=== PATIENT | male | born 1945 | race Caucasian/White ===

== ENCOUNTER 2016-12-31 10:38 | Outpatient (CLI) | payer MEDICARE, OTHER ==
--- NOTE | 2016-12-31 13:49 | XRAY Report ---
TWO-VIEW CHEST: 12/31/2016 CLINICAL INDICATION: Bronchitis. COMPARISON: 10/10/2015 FINDINGS: Frontal and lateral views of the chest demonstrate a normal cardiac silhouette. The lungs are hyperinflated, but clear. No effusion or pneumothorax is present. IMPRESSION: HYPERINFLATION, BUT NO EVIDENCE OF ACUTE CARDIOPULMONARY DISEASE. JOB #: [id number] EXT JOB #:[id number]
== END 2016-12-31 10:39 | disposition home or self-care (01) ==
LOC: DI 10:38
PROVIDERS: ATTEND Family Medicine
DX: J20.8 Acute bronchitis due to other specified organisms (principal)
CPT/HCPCS: 71020

== ENCOUNTER 2017-01-27 13:05 | Outpatient (CLI) | payer MEDICARE, OTHER ==
[2017-01-27 20:06] LABS: CHOL/HDL RATIO 4.7 (<5.0); CHOLESTEROL 222 mg/dL; HDL CHOLESTEROL 47 mg/dL; LDL/HDL RATIO 3.4 (<3.6); TRIGLYCERIDES 81 mg/dL; VLDL CHOLESTEROL 16 mg/dL
== END 2017-01-27 13:06 | disposition home or self-care (01) ==
LOC: LAB.F 13:05
PROVIDERS: ATTEND Internal Medicine
DX: Z13.220 Encounter for screening for lipoid disorders (principal)
CPT/HCPCS: 36415; 80061

== ENCOUNTER 2017-08-01 10:54 | Outpatient (CLI) | payer MEDICARE, OTHER ==
[2017-08-01 18:21] LABS: CHOL/HDL RATIO 4.9 (<5.0); CHOLESTEROL 215 mg/dL; HDL CHOLESTEROL 44 mg/dL; LDL CHOLESTEROL,CALCULATED 153 mg/dL; LDL/HDL RATIO 3.5 (<3.6); VLDL CHOLESTEROL 18 mg/dL
== END 2017-08-01 10:55 | disposition home or self-care (01) ==
LOC: LAB.F 10:54
PROVIDERS: ATTEND Nurse Practitioner Family
DX: E78.5 Hyperlipidemia, unspecified (principal)
CPT/HCPCS: 36415; 80061

== ENCOUNTER 2017-08-19 09:46 | Emergency (ER) | payer MEDICARE, OTHER ==
[2017-08-19 11:12] LABS: BASOPHILS # (AUTO) 0.1 10^3/uL (0.0-0.1); BASOPHILS % (AUTO) 1.3 %; EOSINOPHILS # (AUTO) 0.3 10^3/uL (0.0-0.7); EOSINOPHILS % (AUTO) 5.9 %; LYMPHOCYTES # (AUTO) 1.2 10^3/uL (1.5-3.5); LYMPHOCYTES % (AUTO) 27.6 %; MEAN CORPUSCULAR HEMOGLOBIN 31.6 pg (27.0-31.0); MEAN CORPUSCULAR HGB CONC 34.4 g/dL (32.0-36.0); MEAN PLATELET VOLUME 8.5 fL (7.4-11.4); MONOCYTES # (AUTO) 0.5 10^3/uL (0.0-1.0); MONOCYTES % (AUTO) 11.9 %; NEUTROPHILS # (AUTO) 2.3 10^3/uL (1.5-6.6); NEUTROPHILS % (AUTO) 53.3 %; PLT - PLATELET COUNT 215 10^3/uL (130-450); RED BLOOD COUNT 4.44 10^6/uL (4.70-6.10); RED CELL DISTRIBUTION WIDTH 14.2 % (12.0-15.0); WHITE BLOOD COUNT 4.4 x10^3/uL (4.8-10.8)
[2017-08-19 11:27] LABS: ALBUMIN 4.4 g/dL (3.2-5.5); ALBUMIN/GLOBULIN RATIO 1.3 (1.0-2.2); BILIRUBIN,TOTAL 0.5 mg/dL (0.2-1.0); CALCIUM 9.8 mg/dL (8.5-10.3); CREATININE 0.8 mg/dL (0.6-1.2); TOTAL PROTEIN 7.9 g/dL (6.7-8.2)
--- NOTE | 2017-08-19 11:41 | ED Physician Documentation ---
History of Present Illness - Stated complaint Stated Complaint: SHARP PX LT ARM - Chief complaint Chief Complaint: General - History obtained from History obtained from: Patient, Family - History of Present Illness Timing: How many days ago (2) - Additonal information Additional information: 71-year-old male has recently started Lipitor at 80 mg per day and he is now developed some pain in his left distal triceps that was severe and lasted hours last night. He did not take his statin last night and today his symptoms are somewhat improved. He is concerned about statin myopathy. He has not had shortness of breath or diaphoresis associated with this. He has been in good physical condition usually walks 3 miles per day this is not changed. Review of Systems Constitutional: reports: Myalgias. denies: Fever, Chills Eyes: denies: Decreased vision Ears: denies: Ear pain Nose: denies: Rhinorrhea / runny nose, Congestion Throat: denies: Sore throat Cardiac: denies: Chest pain / pressure, Palpitations Respiratory: denies: Dyspnea, Cough GI: denies: Abdominal Pain, Nausea, Vomiting : denies: Dysuria, Frequency Skin: denies: Rash Musculoskeletal: reports: Extremity pain. denies: Neck pain, Back pain Neurologic: denies: Generalized weakness, Focal weakness, Numbness PD PAST MEDICAL HISTORY - Past Medical History Past Medical History: Yes Cardiovascular: High cholesterol, Other Respiratory: Asthma, Other Neuro: None Endocrine/Autoimmune: None GI: Chronic diarrhea, Hemorrhoids : Benign prostate hypertrophy, Kidney stones, Other HEENT: Chronic vision loss, Chronic sinusitis Psych: Depression, Anxiety Musculoskeletal: Other Derm: Eczema, Other - Past Surgical History Past Surgical History: Yes General: Colonoscopy Ortho: Shoulder arthroplasty Derm: Debridement, Other - Present Medications Home Medications: Ambulatory Orders Medication Instructions Recorded Confirmed Albuterol 2.5 mg INH Q4H PRN 02/15/14 03/04/17 Cholecalciferol (Vitamin D3) 5,000 unit PO DAILY 02/15/14 03/04/17 [Vitamin D] Gluc [place]/Chondro [place] A/Vit C/Mn 1 each PO DAILY 02/15/14 03/04/17 [Glucosamine Chondroitin Tab] Multivitamin [Multivitamins] 1 each PO DAILY 02/15/14 03/04/17 Albuterol Sulfate [Proair Hfa] 90 mcg INH DAILY 05/31/14 03/04/17 Azelastine/Fluticasone [Dymista 50 mcg INH DAILY 05/31/14 03/04/17 Nasal [place]] Bacillus Coagulan/Calcium Carb 1 tab PO DAILYWM 05/31/14 03/04/17 [Digestive Advantage Chew Tab] Jethro Seed/Ala/Linoleic/Oleic [Jethro 1 tsp PO DAILY 05/31/14 03/04/17 Oil 1,000 mg Softgel] Cholecalciferol (Vitamin D3) 1 tab PO DAILY 05/31/14 03/04/17 [D3-50] Fish Oil/Borage/Flax/Om3,6,9#1 400 mg PO DAILY 05/31/14 03/04/17 [Triple [place] Complex 3-6-9] Cyanocobalamin/Folic Acid [Vitamin 5,000 mg PO DAILY 02/28/15 03/04/17 W26-Zcgyl Acid Tablet] Beclomethasone Dipropionate [Qvar] 1 puffs IH DAILY 03/05/16 03/04/17 Budesonide/Formoterol 80/4.5 2 puffs INH BID 03/05/16 03/04/17 [Symbicort] - Allergies Allergies/Adverse Reactions: Allergies Allergy/AdvReac Type Severity Reaction Status Date / Time formaldehyde Allergy Severe Rash Verified 08/19/17 10:01 ibuprofen Allergy Intermediate Dizziness Verified 08/19/17 10:01 latex Allergy Intermediate Rash Verified 08/19/17 10:01 TAPE Allergy Intermediate Rash Uncoded 08/19/17 10:01 - Social History Does the pt smoke?: No Smoking Status: Never smoker Does the pt have substance abuse?: No - POLST Patient has POLST: No PD ED PE NORMAL - Vitals Vital signs reviewed: Yes (hypertensive mild ) - General General: Alert and oriented X 3, No acute distress, Well developed/nourished - HEENT HEENT: Atraumatic, PERRL, EOMI - Neck Neck: Supple, no meningeal sign, No bony TTP - Cardiac Cardiac: RRR, No murmur - Respiratory Respiratory: No respiratory distress, Clear bilaterally - Abdomen Abdomen: Soft, Non tender - Back Back: No CVA TTP, No spinal TTP - Derm Derm: Normal color, Warm and dry, No rash - Extremities Extremities: No deformity, No edema - Neuro Neuro: No motor deficit, No sensory deficit Eye Opening: Spontaneous Motor: Obeys Commands Verbal: Oriented GCS Score: 15 - Psych Psych: Normal mood, Normal affect Results - Vitals Vitals: Vital Signs - 24 hr 08/19/17 08/19/17 08/19/17 09:54 11:12 12:24 Temperature 36.2 C L Heart Rate 49 L 58 L 48 L Respiratory 16 15 14 Rate Blood Pressure 134/89 H 128/87 H 139/83 H O2 Saturation 100 99 100 08/19/17 13:05 Temperature Heart Rate 53 L Respiratory 16 Rate Blood Pressure 138/85 H O2 Saturation 100 Oxygen O2 Source Room air - EKG (time done) 0959 Rate: Rate (enter#) (47) Rhythm: Sinus bradycardia Other comments: Other comments (early transition and borderline interventricluar conduction delay) Compare to prior EKG: Old EKG unavailable Computer interpretation: Disagree with computer (I am not able to make out lateral ST depression ) - Labs Labs: Laboratory Tests 08/19/17 08/19/17 08/19/17 10:20 10:20 10:20 WBC 4.4 L RBC 4.44 L Hgb 14.0 Hct 40.9 L MCV 92.0 MCH 31.6 H MCHC 34.4 RDW 14.2 Plt Count 215 MPV 8.5 Neut # 2.3 Lymph # 1.2 L [place] # 0.5 Eos # 0.3 Baso # 0.1 Absolute Nucleated RBC 0.00 Nucleated RBC % 0.0 Sodium 137 Potassium 3.8 Chloride 100 L Carbon Dioxide 28 Anion Gap 9.0 BUN 12 Creatinine 0.8 Estimated GFR (MDRD) 95 Glucose 90 Calcium 9.8 Total Bilirubin 0.5 AST 25 ALT 30 Alkaline Phosphatase 111 Total Creatine Kinase CK-MB (CK-2) Troponin I < 0.04 Total Protein 7.9 Albumin 4.4 Globulin 3.5 Albumin/Globulin Ratio 1.3 Lipase 25 08/19/17 08/19/17 10:20 10:20 WBC RBC Hgb Hct MCV MCH MCHC RDW Plt Count MPV Neut # Lymph # [place] # Eos # Baso # Absolute Nucleated RBC Nucleated RBC % Sodium Potassium Chloride Carbon Dioxide Anion Gap BUN Creatinine Estimated GFR (MDRD) Glucose Calcium Total Bilirubin AST ALT Alkaline Phosphatase Total Creatine Kinase 138 CK-MB (CK-2) 3.3 Troponin I Total Protein Albumin Globulin Albumin/Globulin Ratio Lipase PD MEDICAL DECISION MAKING - ED course Complexity details: considered differential, d/w patient ED course: 71-year-old male with a recent medication addition of a statin has developed some muscle pain and tenderness into a specific area on his arm. He has no evidence of infarction and he has no elevation of his CPK. 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 Departure - Departure Disposition: 01 Home, Self Care Clinical Impression: Statin intolerance Condition: Stable Instructions: ED Drug React Adverse Other Follow-Up: Lizandro Hodge MD [Primary Care Provider] - Comments: Today it appears you may not be tolerating your statin stop the Atrovastatin and follow-up with your primary care doctor
[2017-08-19 13:05] VITALS: BP 138/85
== END 2017-08-19 13:33 | disposition home or self-care (01) ==
LOC: ED 09:46
DX: M79.1 Myalgia (principal); T46.6X5A Adverse effect of antihyperlipidemic and antiarteriosclerotic drugs, initial encounter; E78.5 Hyperlipidemia, unspecified; J45.909 Unspecified asthma, uncomplicated; R00.1 Bradycardia, unspecified
CPT/HCPCS: 36415; 80053; 82550; 82553; 83690; 84484; 85025; 93005; 99283

== ENCOUNTER 2017-09-17 09:53 | Outpatient (CLI) | payer MEDICARE, OTHER ==
[2017-09-17 18:14] LABS: ALBUMIN 4.2 g/dL (3.2-5.5); ALKALINE PHOSPHATASE 118 IU/L (42-121); ALT ALANINE AMINOTRANSFERASE 28 IU/L (10-60); AST ASPARTATE AMINOTRANSFERASE 21 IU/L (10-42); BILIRUBIN,DIRECT 0.1 mg/dL (0.1-0.5); BILIRUBIN,TOTAL 0.7 mg/dL (0.2-1.0); CHOLESTEROL 124 mg/dL; HDL CHOLESTEROL 42 mg/dL; LDL CHOLESTEROL,CALCULATED 68 mg/dL; LDL/HDL RATIO 1.6 (<3.6); TOTAL PROTEIN 7.6 g/dL (6.7-8.2); VLDL CHOLESTEROL 14 mg/dL
== END 2017-09-17 09:54 | disposition home or self-care (01) ==
LOC: LAB.F 09:53
PROVIDERS: ATTEND Family Medicine
DX: E78.5 Hyperlipidemia, unspecified (principal)
CPT/HCPCS: 36415; 80061; 80076; 83721

== ENCOUNTER 2017-11-07 12:28 | Outpatient (CLI) | payer MEDICARE, OTHER ==
--- NOTE | 2017-11-07 19:51 | XRAY Report ---
TWO VIEW CHEST: 11/07/2017 CLINICAL INDICATION: Dyspnea on exertion. COMPARISON: 12/31/2016 FINDINGS: Frontal and lateral views of the chest demonstrate an enlarged cardiac silhouette. The lungs are hyperinflated, but clear. No effusion or pneumothorax is present. IMPRESSION: 1. STABLE HYPERINFLATION. 2. NEW CARDIOMEGALY. TD: 11/07/2017 19:50
== END 2017-11-07 12:29 | disposition home or self-care (01) ==
LOC: DI.S 12:28
PROVIDERS: ATTEND Nurse Practitioner Family
DX: R06.09 Other forms of dyspnea (principal)
CPT/HCPCS: 71046

== ENCOUNTER 2017-11-12 13:49 | Outpatient (CLI) | payer MEDICARE, OTHER | END 2017-11-12 13:50 | disposition home or self-care (01) | LOC: DI 13:49 | PROVIDERS: ATTEND Nurse Practitioner Family | DX: R06.02 Shortness of breath (principal); I51.7 Cardiomegaly; I77.810 Thoracic aortic ectasia | CPT/HCPCS: 93306 ==

== ENCOUNTER 2017-11-24 08:00 | Outpatient (CLI) | payer MEDICARE, OTHER | END 2017-11-24 08:01 | disposition home or self-care (01) | LOC: LAB.S 08:00 | PROVIDERS: ATTEND Nurse Practitioner Family | DX: R06.09 Other forms of dyspnea (principal) | CPT/HCPCS: 36415; 83880 ==

== ENCOUNTER 2019-06-29 11:46 | Outpatient (CLI) | payer MEDICARE, OTHER ==
--- NOTE | 2019-06-30 09:18 | XRAY Report ---
Reason: F.B. (GLASS) UPPER MEDICAL LEFT FOREARM Procedure Date: 06/29/2019 Accession Number: [id number] / [id number] Procedure: XR - Forearm LT CPT Code: Final Report FULL RESULT: EXAM: LEFT FOREARM RADIOGRAPHY EXAM DATE: 06/29/2019 12:25 PM. CLINICAL HISTORY: Glass in arm for 43 years. Evaluate location. Current pain near elbow. COMPARISON: None. TECHNIQUE: 2 views. FINDINGS: Bones: Normal. No fractures or bone lesions. Joints: Normal. No effusions or subluxations in the visualized wrist or elbow joints. Soft Tissues: A total of three candid foreign bodies are identified projecting medially to the proximal third of the ulna on AP projection measuring 8, 7 and 3 mm in length, respectively with a squared shape and density compatible with reported history of glass shards, appearance compatible with fractured tempered glass. These are not well seen on the lateral projection. IMPRESSION: Radiopaque foreign bodies measuring up to 8 mm, consistent with provided history. RADIA
== END 2019-06-29 11:47 | disposition home or self-care (01) ==
LOC: DI 11:46
PROVIDERS: ATTEND Surgery
DX: M79.5 Residual foreign body in soft tissue (principal)

== ENCOUNTER 2019-08-05 10:32 | Outpatient (CLI) | payer MEDICARE, OTHER ==
[2019-08-05 17:35] LABS: ALBUMIN 4.2 g/dL (3.2-5.5); ALBUMIN/GLOBULIN RATIO 1.2 (1.0-2.2); ALKALINE PHOSPHATASE 103 IU/L (42-121); ALT ALANINE AMINOTRANSFERASE 27 IU/L (10-60); AST ASPARTATE AMINOTRANSFERASE 20 IU/L (10-42); BILIRUBIN,TOTAL 0.9 mg/dL (0.2-1.0); BUN - BLOOD UREA NITROGEN 13 mg/dL (6-20); CALCIUM 9.3 mg/dL (8.5-10.3); CARBON DIOXIDE - CO2 29 mmol/L (21-32); CHLORIDE 101 mmol/L (101-111); CHOL/HDL RATIO 2.8 (<5.0); CHOLESTEROL 124 mg/dL; CREATININE 0.9 mg/dL (0.6-1.2); GFR - MDRD 82 (>89); GLUCOSE 93 mg/dL (70-100); HDL CHOLESTEROL 44 mg/dL; LDL CHOLESTEROL,CALCULATED 69 mg/dL; LDL/HDL RATIO 1.6 (<3.6); SODIUM 138 mmol/L (135-145); TOTAL PROTEIN 7.7 g/dL (6.7-8.2); VLDL CHOLESTEROL 11 mg/dL
== END 2019-08-05 10:33 | disposition home or self-care (01) ==
LOC: LAB.S 10:32
PROVIDERS: ATTEND Internal Medicine
DX: E78.5 Hyperlipidemia, unspecified (principal)
CPT/HCPCS: 36415; 80053; 80061; 83721

== ENCOUNTER 2019-09-17 19:11 | Emergency (ER) | payer MEDICARE, OTHER ==
[2019-09-17 20:20] VITALS: BP 114/82
[2019-09-17] MEDS ORDERED: SODIUM CHLORIDE 0.9% 1,000 ML IV ONE (20:21)
[2019-09-17] MEDS ORDERED: KETOROLAC 30 MG/ML VIAL IVP STA (20:21)
--- NOTE | 2019-09-17 20:22 | ED Physician Documentation ---
PD HPI NVD - Stated complaint Stated Complaint: FEVER/COUGH - Chief complaint Chief Complaint: Fever - History obtained from History obtained from: Patient - History of Present Illness Timing - onset: Other (This is a very healthy 73-year-old gentleman who without recent travel has had below 48 hours of runny nose, productive cough of clear sputum, body aches, fevers and chills. No nausea or diarrhea. No sick contacts that are known but they have grandchildren who may have been sick.) Review of Systems Ten Systems: 10 systems reviewed and negative Constitutional: reports: Fever, Chills, Myalgias, Fatigue Nose: reports: Rhinorrhea / runny nose Throat: denies: Sore throat Respiratory: reports: Cough. denies: Dyspnea GI: denies: Vomiting, Diarrhea PD PAST MEDICAL HISTORY - Past Medical History Past Medical History: Yes Cardiovascular: High cholesterol, Other Respiratory: Asthma, Other Endocrine/Autoimmune: None GI: Chronic diarrhea, Hemorrhoids : Benign prostate hypertrophy, Kidney stones, Other HEENT: Chronic vision loss, Chronic sinusitis Psych: Depression, Anxiety Musculoskeletal: Other Derm: Eczema, Other - Past Surgical History Past Surgical History: Yes General: Colonoscopy Ortho: Shoulder arthroplasty Derm: Debridement, Other - Present Medications Home Medications: Ambulatory Orders Medication Instructions Recorded Confirmed Albuterol 2.5 mg INH Q4H PRN 02/15/14 03/23/19 Cholecalciferol (Vitamin D3) 5,000 unit PO DAILY 02/15/14 03/23/19 [Vitamin D] Gluc [place]/Chondro [place] A/Vit C/Mn 1 each PO DAILY 02/15/14 03/23/19 [Glucosamine Chondroitin Tab] Multivitamin [Multivitamins] 1 each PO DAILY 02/15/14 03/23/19 Albuterol Sulfate [Proair Hfa] 90 mcg INH DAILY 05/31/14 03/23/19 Azelastine/Fluticasone [Dymista 50 mcg INH DAILY 05/31/14 03/23/19 Nasal [place]] Bacillus Coagulan/Calcium Carb 1 tab PO DAILYWM 05/31/14 03/23/19 [Digestive Advantage Chew Tab] Jethro/Linolenic/Linoleic/Oleic 1 tsp PO DAILY 05/31/14 03/23/19 [Jethro Oil 1,000 mg Softgel] Cholecalciferol (Vitamin D3) 1 tab PO DAILY 05/31/14 03/23/19 [D3-50] Fish Oil/Borage/Flax/Om3,6,9 1 400 mg PO DAILY 05/31/14 03/23/19 [Triple [place] Complex 3-6-9] Cyanocobalamin/Folic Acid [Vitamin 5,000 mg PO DAILY 02/28/15 03/23/19 U48-Lljrm Acid Tablet] Beclomethasone Dipropionate [Qvar] 1 puffs IH DAILY 03/05/16 03/23/19 Budesonide/Formoterol 80/4.5 2 puffs INH BID 03/05/16 03/23/19 [Symbicort] - Allergies Allergies/Adverse Reactions: Allergies Allergy/AdvReac Type Severity Reaction Status Date / Time formaldehyde Allergy Severe Rash Verified 09/17/19 19:18 ibuprofen Allergy Intermediate Dizziness Verified 09/17/19 19:18 latex Allergy Intermediate Rash Verified 09/17/19 19:18 TAPE Allergy Intermediate Rash Uncoded 09/17/19 19:18 - Social History Does the pt smoke?: No Smoking Status: Never smoker Does the pt have substance abuse?: No - POLST Patient has POLST: No PD ED PE NORMAL - Vitals Vital signs reviewed: Yes - General General: Alert and oriented X 3, No acute distress - HEENT HEENT: PERRL, Pharynx benign - Neck Neck: Supple, no meningeal sign, No bony TTP - Cardiac Cardiac: RRR, No murmur - Respiratory Respiratory: No respiratory distress, Clear bilaterally - Abdomen Abdomen: Non tender - Back Back: No CVA TTP, No spinal TTP - Derm Derm: Normal color, Warm and dry - Extremities Extremities: No edema, No calf tenderness / cord - Neuro Neuro: Alert and oriented X 3, Normal speech Results - Vitals Vitals: Vital Signs - 24 hr 09/17/19 09/17/19 19:15 20:20 Temperature 38.8 C H Heart Rate 93 88 Respiratory 18 16 Rate Blood Pressure 142/79 H 114/82 H O2 Saturation 96 95 Oxygen O2 Source Room air - Labs Labs: Laboratory Tests 09/17/19 09/17/19 09/17/19 20:26 20:26 20:26 WBC 4.7 L RBC 4.12 L Hgb 13.1 L Hct 38.9 L MCV 94.4 H MCH 31.8 H MCHC 33.7 RDW 13.5 Plt Count 174 MPV 10.1 Neut # (Auto) 3.4 Lymph # (Auto) 0.4 L [place] # (Auto) 0.8 Eos # (Auto) 0.0 Baso # (Auto) 0.0 Absolute Nucleated RBC 0.00 Nucleated RBC % 0.0 Sodium 134 L Potassium 3.8 Chloride 98 L Carbon Dioxide 25 Anion Gap 11.0 BUN 13 Creatinine 0.8 Estimated GFR (MDRD) 94 Glucose 109 H Lactic Acid 1.4 Calcium 9.2 Total Bilirubin 0.4 AST 27 ALT 32 Alkaline Phosphatase 109 Total Protein 7.4 Albumin 4.0 Globulin 3.4 Albumin/Globulin Ratio 1.2 Lipase 37 Influenza A (Rapid) Influenza B (Rapid) 09/17/19 20:27 WBC RBC Hgb Hct MCV MCH MCHC RDW Plt Count MPV Neut # (Auto) Lymph # (Auto) [place] # (Auto) Eos # (Auto) Baso # (Auto) Absolute Nucleated RBC Nucleated RBC % Sodium Potassium Chloride Carbon Dioxide Anion Gap BUN Creatinine Estimated GFR (MDRD) Glucose Lactic Acid Calcium Total Bilirubin AST ALT Alkaline Phosphatase Total Protein Albumin Globulin Albumin/Globulin Ratio Lipase Influenza A (Rapid) POSITIVE H Influenza B (Rapid) Negative - Rads (name of study) 2v CXR Radiology: EMP read contemporaneously (NAD) PD MEDICAL DECISION MAKING - ED course ED course: 73-year-old gentleman with both clinical and serologic evidence of influenza A. Their main was concern was pneumonia but there are no clinical or radiologic findings of that. Feeling better after IV fluids and Toradol. We discussed antivirals, he is already been sick for about 48 hours and is pretty healthy for his age and after discussion they declined. Departure - Departure Disposition: 01 Home, Self Care Clinical Impression: Influenza A Condition: Good Record reviewed to determine appropriate education?: Yes Instructions: ED Flu Comments: Return for new or worsening symptoms or if not better by Friday. Tylenol, NyQuil, Mucinex as needed for symptoms. Drink plenty of fluids.
[2019-09-17 20:33] LABS: BASOPHILS % (AUTO) 0.6 %; EOSINOPHILS % (AUTO) 0.9 %; HGB - HEMOGLOBIN 13.1 g/dL (14.0-18.0); LYMPHOCYTES # (AUTO) 0.4 10^3/uL (1.5-3.5); LYMPHOCYTES % (AUTO) 8.1 %; MEAN CORPUSCULAR HEMOGLOBIN 31.8 pg (27.0-31.0); MEAN CORPUSCULAR HGB CONC 33.7 g/dL (32.0-36.0); MEAN CORPUSCULAR VOLUME 94.4 fL (80.0-94.0); MEAN PLATELET VOLUME 10.1 fL (7.4-11.4); MONOCYTES # (AUTO) 0.8 10^3/uL (0.0-1.0); MONOCYTES % (AUTO) 17.6 %; NEUTROPHILS # (AUTO) 3.4 10^3/uL (1.5-6.6); NEUTROPHILS % (AUTO) 72.6 %; PLT - PLATELET COUNT 174 10^3/uL (130-450); RED BLOOD COUNT 4.12 10^6/uL (4.70-6.10); RED CELL DISTRIBUTION WIDTH 13.5 % (12.0-15.0); WHITE BLOOD COUNT 4.7 x10^3/uL (4.8-10.8)
--- NOTE | 2019-09-17 20:40 | XRAY Report ---
Reason: cough fever Procedure Date: 09/17/2019 Accession Number: [id number] / [id number] Procedure: XR - Chest 2 View X-Ray CPT Code: 75471 Final Report FULL RESULT: EXAM: CHEST RADIOGRAPHY EXAM DATE: 09/17/2019 08:05 PM. CLINICAL HISTORY: Cough fever. COMPARISON: CHEST 2 VIEW PA/LAT 12/31/2016 10:44 AM. TECHNIQUE: 2 views. FINDINGS: Lungs/Pleura: Biapical scarring is present. No dense consolidation. No large effusion or pneumothorax. No pulmonary edema. Mediastinum: Heart and mediastinal contours are unremarkable. Other: None. IMPRESSION: No acute radiographic pulmonary abnormalities. RADIA
[2019-09-17 20:47] LABS: ALBUMIN/GLOBULIN RATIO 1.2 (1.0-2.2); BILIRUBIN,TOTAL 0.4 mg/dL (0.2-1.0); CALCIUM 9.2 mg/dL (8.5-10.3); CREATININE 0.8 mg/dL (0.6-1.2); TOTAL PROTEIN 7.4 g/dL (6.7-8.2)
== END 2019-09-17 21:26 | disposition home or self-care (01) ==
LOC: ED 19:11
DX: J10.1 Influenza due to other identified influenza virus with other respiratory manifestations (principal)
CPT/HCPCS: 36415; 71046; 80053; 83605; 83690; 85025; 87275; 87276; 96374; 99284

== ENCOUNTER 2020-08-08 10:24 | Outpatient (CLI) | payer MEDICARE, OTHER ==
[2020-08-08 16:01] LABS: BASOPHILS # (AUTO) 0.1 10^3/uL (0.0-0.1); BASOPHILS % (AUTO) 1.4 %; EOSINOPHILS # (AUTO) 0.2 10^3/uL (0.0-0.7); EOSINOPHILS % (AUTO) 5.2 %; HGB - HEMOGLOBIN 13.1 g/dL (14.0-18.0); LYMPHOCYTES # (AUTO) 1.3 10^3/uL (1.5-3.5); LYMPHOCYTES % (AUTO) 30.8 %; MEAN CORPUSCULAR HEMOGLOBIN 30.9 pg (27.0-31.0); MEAN CORPUSCULAR HGB CONC 31.9 g/dL (32.0-36.0); MEAN CORPUSCULAR VOLUME 96.9 fL (80.0-94.0); MEAN PLATELET VOLUME 10.8 fL (7.4-11.4); MONOCYTES # (AUTO) 0.5 10^3/uL (0.0-1.0); MONOCYTES % (AUTO) 11.8 %; NEUTROPHILS # (AUTO) 2.2 10^3/uL (1.5-6.6); NEUTROPHILS % (AUTO) 50.6 %; PLT - PLATELET COUNT 205 10^3/uL (130-450); RED BLOOD COUNT 4.24 10^6/uL (4.70-6.10); RED CELL DISTRIBUTION WIDTH 13.7 % (12.0-15.0); WHITE BLOOD COUNT 4.3 x10^3/uL (4.8-10.8)
[2020-08-08 16:28] LABS: ALBUMIN 4.3 g/dL (3.2-5.5); ALBUMIN/GLOBULIN RATIO 1.3 (1.0-2.2); ALKALINE PHOSPHATASE 122 IU/L (42-121); ALT ALANINE AMINOTRANSFERASE 24 IU/L (10-60); AST ASPARTATE AMINOTRANSFERASE 19 IU/L (10-42); BILIRUBIN,TOTAL 0.6 mg/dL (0.2-1.0); BUN - BLOOD UREA NITROGEN 13 mg/dL (6-20); CALCIUM 9.6 mg/dL (8.5-10.3); CARBON DIOXIDE - CO2 28 mmol/L (21-32); CHLORIDE 99 mmol/L (101-111); CHOL/HDL RATIO 2.6 (<5.0); CHOLESTEROL 128 mg/dL; CREATININE 0.9 mg/dL (0.6-1.2); GLUCOSE 93 mg/dL (70-100); HDL CHOLESTEROL 49 mg/dL; LDL CHOLESTEROL,CALCULATED 70 mg/dL; LDL/HDL RATIO 1.4 (<3.6); SODIUM 138 mmol/L (135-145); TOTAL PROTEIN 7.6 g/dL (6.7-8.2); VLDL CHOLESTEROL 9 mg/dL
== END 2020-08-08 10:25 | disposition home or self-care (01) ==
LOC: LAB.S 10:24
PROVIDERS: ATTEND Physician Assistant
DX: Z00.00 Encounter for general adult medical examination without abnormal findings (principal); E78.5 Hyperlipidemia, unspecified; N40.1 Benign prostatic hyperplasia with lower urinary tract symptoms; N13.8 Other obstructive and reflux uropathy; R51.9 Headache, unspecified
CPT/HCPCS: 36415; 80053; 80061; 83721; 84443; 85025

== ENCOUNTER 2020-08-31 15:14 | Outpatient (CLI) | payer MEDICARE, OTHER ==
--- NOTE | 2020-09-01 08:53 | XRAY Report ---
PROCEDURE: Spine Scoliosis Study 4-5V INDICATIONS: Scoliosis TECHNIQUE: Frontal and lateral standing and supine views of the spine acquired. COMPARISON: Prior skeletal survey 06/09/[address] abdomen/pelvis 09/11/2015. FINDINGS: There is a moderate degree of degenerative disc disease along the middle third of the thoracic spine best seen on the lateral projections, with associated kyphosis centered at the middle third of the th oracic spine, where several adjacent vertebral bodies appear slightly reduced in anterior height, wit h scoliosis not seen centered in the thoracic spine on frontal projections. No prior definite wedge c ompression fractures are found. At the lumbosacral spine there is moderately severe degenerative disc disease and facet osteoarthritis over the middle and lower thirds of the lumbosacral spine. Signific ant spinal and foraminal stenosis likely is associated. On the frontal view imaging note is made of 25 degrees convex rightward scoliosis centered on the tho racolumbar junction seen on the upright imaging and which resolves on the supine imaging through this area. The Nguyen angle measurements are from the inferior vertebral body of T10 to the middle third ve rtebral body of L3. Bone morphology: No developmental anomalies of the ribs or spine. 12 pairs of ribs are noted. 5 no nrib-bearing lumbar vertebrae are present. No suspicious bony lesions. IMPRESSION: 25 degree dextroscoliosis centered at the thoracolumbar junction is present without congenital or acq uired morphologic abnormality along this portion of the lumbosacral spine. This is seen on the uprigh t imaging but resolves on supine imaging. No area of prior definite compression fractures seen. Moderate degenerative disc disease along the mid thoracic spine, resulting in kyphosis, but a definit e compression fracture is not present in this area. Age-related degenerative change is the presumed c ause. Note also is made of relatively prominent middle and lower third lumbosacral spine degenerative disc disease and facet osteoarthritis on the lateral projections. Reviewed by: Dylon Ruiz MD on 09/01/2020 8:51 AM PST Approved by: Dylon Ruiz MD on 09/01/2020 8:51 AM PST Station ID: [id number]
== END 2020-08-31 15:15 | disposition home or self-care (01) ==
LOC: DI 15:14
PROVIDERS: ATTEND Physician Assistant
DX: M41.85 Other forms of scoliosis, thoracolumbar region (principal); M51.34 Other intervertebral disc degeneration, thoracic region; M51.37 Other intervertebral disc degeneration, lumbosacral region

== ENCOUNTER 2021-02-16 08:00 | Outpatient (CLI) | payer MEDICARE, OTHER ==
--- NOTE | 2021-02-16 16:10 | XRAY Report ---
PROCEDURE: Chest 2 View X-Ray INDICATIONS: SHORTNESS OF BREATH TECHNIQUE: 2 view(s) of the chest. COMPARISON: 09/17/2019. FINDINGS: Surgical changes and devices: None. Lungs and pleura: No pleural effusions or pneumothorax. Chronic emphysematous changes are seen. No f ocal infiltrate. Mediastinum: Mediastinal contours are normal. Heart size is normal. Bones and chest wall: No suspicious bony abnormalities. Soft tissues appear unremarkable. IMPRESSION: COPD. No focal infiltrate, pleural effusion or pneumothorax. Reviewed by: Tk Wylie MD on 02/16/2021 4:08 PM PDT Approved by: Tk Wylie MD on 02/16/2021 4:08 PM PDT Station ID: [id number]
== END 2021-02-16 23:59 | disposition home or self-care (01) ==
LOC: DI.S 08:00
PROVIDERS: ATTEND Physician Assistant Medical
DX: J44.9 Chronic obstructive pulmonary disease, unspecified (principal); Z20.822 Contact with and (suspected) exposure to COVID-19
CPT/HCPCS: 71046; U0004

== ENCOUNTER 2021-11-15 08:00 | Outpatient (CLI) | payer MEDICARE, OTHER ==
[2021-11-15 15:26] LABS: CREATININE 0.8 mg/dL (0.6-1.2)
== END 2021-11-15 08:01 | disposition home or self-care (01) ==
LOC: LAB.S 08:00
PROVIDERS: ATTEND Nurse Practitioner Family
DX: R42 Dizziness and giddiness (principal); R51.9 Headache, unspecified
CPT/HCPCS: 36415; 82565

== ENCOUNTER 2022-11-26 11:24 | Emergency (ER) | payer MEDICARE, OTHER ==
[2022-11-26 11:48] LABS: BILIRUBIN,URINE NEGATIVE (NEGATIVE); GLUCOSE, URINE (UA) NEGATIVE (NEGATIVE); KETONES,URINE (UA) NEGATIVE (NEGATIVE); LEUKOCYTE ESTERASE, URINE NEGATIVE (NEGATIVE); NITRITE,URINE NEGATIVE (NEGATIVE); OCCULT BLOOD,URINE LARGE (NEGATIVE); PH,URINE 6.5 PH (5.0-7.5); PROTEIN,URINE TRACE mg/dL (NEGATIVE); UROBILINOGEN,URINE 0.2 (NORMAL) E.U./dL (NORMAL)
[2022-11-26 11:49] LABS: CLARITY,URINE CLEAR (CLEAR)
[2022-11-26 12:08] LABS: BACTERIA,URINE Few /HPF (None Seen); RBC,URINE TNTC /HPF (0-5); SQUAMOUS EPITHELIAL CELL,UR NONE SEEN (<= Few); WBC,URINE 0-3 /HPF (0-3)
--- OUTSIDE RECORDS SUMMARY | 2022-11-26 12:18 | EXTERNAL MEDICAL SUMMARY RPT | Continuity of Care Document ---
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 Name Role Phone Unavailable Unavailable Unavailable Pamela Espinoza Unavailable Unavailable Allergies and Intolerances date description facility type (no date) [facility] (unknown) Medications date description facility 2022-10-23 00:00 sod oevll-owgety-jfroqq bottle [facility] 2022-11-26 00:00 sod iookk-futbjr-epwtur bottle [facility] 2022-10-23 00:00 sod szsel-wdeuxo-ndbned bottle [facility] 2022-11-26 00:00 sod iuznz-dzhadr-aszfrx bottle [facility] 2022-10-23 00:00 montelukast [facility] 2022-10-23 00:00 atorvastatin [facility] 2022-10-23 00:00 sod dtbnn-lrqqkf-reisuk bottle [facility] 2022-11-26 00:00 sod cnuoi-emkcmn-jvdroz bottle [facility] 2022-10-23 00:00 montelukast [facility] 2022-10-23 00:00 atorvastatin [facility] 2022-10-23 00:00 montelukast [facility] 2022-10-23 00:00 atorvastatin [facility] 2022-10-23 00:00 atorvastatin [facility] 2022-10-23 00:00 khadijah [facility]
[2022-11-26] MEDS ORDERED: SODIUM CHLORIDE 0.9% 1,000 ML IV STA (13:41)
[2022-11-26 13:55] LABS: BASOPHILS # (AUTO) 0.1 10^3/uL (0.0-0.1); BASOPHILS % (AUTO) 1.3 %; EOSINOPHILS # (AUTO) 0.2 10^3/uL (0.0-0.7); EOSINOPHILS % (AUTO) 4.7 %; HCT - HEMATOCRIT 41.2 % (42.0-52.0); HGB - HEMOGLOBIN 13.6 g/dL (14.0-18.0); LYMPHOCYTES # (AUTO) 1.5 10^3/uL (1.5-3.5); LYMPHOCYTES % (AUTO) 31.1 %; MEAN CORPUSCULAR HEMOGLOBIN 31.5 pg (27.0-31.0); MEAN CORPUSCULAR VOLUME 95.4 fL (80.0-94.0); MONOCYTES # (AUTO) 0.6 10^3/uL (0.0-1.0); MONOCYTES % (AUTO) 12.1 %; NEUTROPHILS # (AUTO) 2.4 10^3/uL (1.5-6.6); NEUTROPHILS % (AUTO) 50.6 %; PLT - PLATELET COUNT 214 10^3/uL (130-450); RED BLOOD COUNT 4.32 10^6/uL (4.70-6.10); RED CELL DISTRIBUTION WIDTH 13.8 % (12.0-15.0); WHITE BLOOD COUNT 4.7 x10^3/uL (4.8-10.8)
[2022-11-26 14:06] LABS: ALBUMIN 4.1 g/dL (3.2-5.5); BILIRUBIN,TOTAL 0.5 mg/dL (0.2-1.0); CALCIUM 9.8 mg/dL (8.5-10.3); CREATININE 0.8 mg/dL (0.6-1.2); INR 1.1 (0.8-1.2); POTASSIUM 4.2 mmol/L (3.5-5.0); PT - PROTHROMBIN TIME 11.9 secs (9.9-12.6); TOTAL PROTEIN 8.1 g/dL (6.7-8.2)
[2022-11-26] MEDS ORDERED: iohexoL-300 100 ML VIAL ONE ×2 (14:29→14:30)
--- NOTE | 2022-11-26 15:39 | ED Physician Documentation ---
History of Present Illness - Stated complaint Stated Complaint: MALE ,LOWER BACK PX - Chief complaint Chief Complaint: Back Pain - Additonal information Additional information: Patient is 77-year-old male presenting with right-sided flank pain and pink/blood-tinged urine x4 days. History of kidney stones. Patient denies use of blood thinning medicines. Denies fever, Chills, nausea, vomiting, diarrhea, constipation. Review of Systems Constitutional: denies: Fever Eyes: denies: Loss of vision Ears: denies: Loss of hearing Nose: denies: Rhinorrhea / runny nose Throat: denies: Dental pain / toothache Cardiac: denies: Chest pain / pressure Respiratory: denies: Dyspnea GI: reports: Other (Flank pain) : reports: Hematuria PD PAST MEDICAL HISTORY - Past Medical History Cardiovascular: High cholesterol, Other Respiratory: Asthma, Other Endocrine/Autoimmune: None GI: Chronic diarrhea, Hemorrhoids : Benign prostate hypertrophy, Kidney stones, Other HEENT: Chronic vision loss, Chronic sinusitis Psych: Depression, Anxiety Musculoskeletal: Other Derm: Eczema, Other - Past Surgical History Past Surgical History: Yes General: Colonoscopy Ortho: Shoulder arthroplasty Derm: Debridement, Other - Present Medications Home Medications: Ambulatory Orders Medication Instructions Recorded Confirmed Albuterol 2.5 mg INH Q4H PRN 02/15/14 03/21/22 Cholecalciferol (Vitamin D3) 5,000 unit PO DAILY 02/15/14 03/21/22 [Vitamin D] Gluc [place]/Chondro Skelton A/Vit C/Mn 1 each PO DAILY 02/15/14 03/21/22 [Glucosamine Chondroitin Tab] Multivitamin [Multivitamins] 1 each PO DAILY 02/15/14 03/21/22 Albuterol Sulfate [Proair Hfa] 90 mcg INH DAILY 05/31/14 03/21/22 Azelastine/Fluticasone [Dymista 50 mcg INH DAILY 05/31/14 03/21/22 Nasal [place]] Bacillus Coagulan/Calcium Carb 1 tab PO DAILYWM 05/31/14 03/21/22 [Digestive Advantage Chew Tab] Jethro/Linolenic/Linoleic/Oleic 1 tsp PO DAILY 05/31/14 03/21/22 [Jethro Oil 1,000 mg Softgel] Cholecalciferol (Vitamin D3) 1 tab PO DAILY 05/31/14 03/21/22 [D3-50] Fish Oil/Borage/Flax/Om3,6,9 1 400 mg PO DAILY 05/31/14 03/21/22 [Triple [place] Complex 3-6-9] Cyanocobalamin/Folic Acid [Vitamin 5,000 mg PO DAILY 02/28/15 03/21/22 [id number] Acid Tablet] Beclomethasone Dipropionate [Qvar] 1 puffs IH DAILY 03/05/16 03/21/22 Budesonide/Formoterol 80/4.5 2 puffs INH BID 03/05/16 03/21/22 [Symbicort] Atorvastatin [Lipitor] 20 mg PO DAILY 03/21/22 03/21/22 HYDROcod/ACETAM 5/325 [[place] 5/325] 1 tab PO Q6HR PRN #10 tablet 11/26/22 Ondansetron Odt [Zofran] 4 mg TL Q6H PRN #10 tablet 11/26/22 - Allergies Allergies/Adverse Reactions: Allergies Allergy/AdvReac Type Severity Reaction Status Date / Time formaldehyde Allergy Severe Rash Verified 03/21/20 13:16 ibuprofen Allergy Intermediate Dizziness Verified 03/21/20 13:16 latex Allergy Intermediate Rash Verified 03/21/20 13:16 TAPE Allergy Intermediate Rash Uncoded 03/21/20 13:16 - Social History Does the pt smoke?: No Smoking Status: Never smoker Does the pt have substance abuse?: No - POLST Patient has POLST: No PD ED PE NORMAL - Vitals Vital signs reviewed: Yes - General General: Alert and oriented X 3, No acute distress - HEENT HEENT: Atraumatic, PERRL, Pharynx benign - Neck Neck: Supple, no meningeal sign - Cardiac Cardiac: RRR, No murmur - Respiratory Respiratory: No respiratory distress - Abdomen Abdomen: Normal bowel sounds - Male Male : Deferred - Rectal Rectal: Deferred - Derm Derm: Normal color - Extremities Extremities: No deformity - Neuro Neuro: Alert and oriented X 3, application helper 2-12 intact, No motor deficit Results - Vitals Vitals: Oxygen O2 Source Room air - Labs Labs: Laboratory Tests 11/26/22 11/26/22 11/26/22 11:32 13:48 13:48 WBC 4.7 L RBC 4.32 L Hgb 13.6 L Hct 41.2 L MCV 95.4 H MCH 31.5 H MCHC 33.0 RDW 13.8 Plt Count 214 MPV 10.0 Neut # (Auto) 2.4 Lymph # (Auto) 1.5 [place] # (Auto) 0.6 Eos # (Auto) 0.2 Baso # (Auto) 0.1 Absolute Nucleated RBC 0.00 Nucleated RBC % 0.0 PT 11.9 INR 1.1 Sodium Potassium Chloride Carbon Dioxide Anion Gap BUN Creatinine Estimated GFR (MDRD) Glucose Calcium Total Bilirubin AST ALT Alkaline Phosphatase Total Protein Albumin Globulin Albumin/Globulin Ratio Lipase Urine Color YELLOW Urine Clarity CLEAR Urine pH 6.5 Ur Specific [place] 1.020 Urine Protein TRACE Urine Glucose (UA) NEGATIVE Urine Ketones NEGATIVE Urine Occult Blood LARGE H Urine Nitrite NEGATIVE Urine Bilirubin NEGATIVE Urine Urobilinogen 0.2 (NORMAL) Ur Leukocyte Esterase NEGATIVE Urine RBC TNTC H Urine WBC 0-3 Ur Squamous Epith Cells NONE SEEN Urine Bacteria Few Ur Microscopic Review INDICATED Urine Culture Comments NOT INDICATED 11/26/22 13:48 WBC RBC Hgb Hct MCV MCH MCHC RDW Plt Count MPV Neut # (Auto) Lymph # (Auto) [place] # (Auto) Eos # (Auto) Baso # (Auto) Absolute Nucleated RBC Nucleated RBC % PT INR Sodium 141 Potassium 4.2 Chloride 103 Carbon Dioxide 27 Anion Gap 11.0 BUN 19 Creatinine 0.8 Estimated GFR (MDRD) 93 Glucose 102 H Calcium 9.8 Total Bilirubin 0.5 AST 18 ALT 25 Alkaline Phosphatase 113 Total Protein 8.1 Albumin 4.1 Globulin 4.0 Albumin/Globulin Ratio 1.0 Lipase 40 Urine Color Urine Clarity Urine pH Ur Specific [place] Urine Protein Urine Glucose (UA) Urine Ketones Urine Occult Blood Urine Nitrite Urine Bilirubin Urine Urobilinogen Ur Leukocyte Esterase Urine RBC Urine WBC Ur Squamous Epith Cells Urine Bacteria Ur Microscopic Review Urine Culture Comments PD Medical Decision Making - ED course Complexity details: reviewed results, re-evaluated patient, considered differential, d/w patient ED course: Patient 77-year-old male presenting with right-sided flank pain with hematuria. Afebrile, he medically stable. Labs demonstrate no significant anemia, thrombocytopenia, renal failure or leukocytosis. Urine analysis positive for red blood cells and other findings consistent with bleeding but no signs of infection. Patient offered medication for pain control which was initially declined however towards the end of his ED visit he did request something for pain and this was provided. CT abdomen pelvis demonstrates right-sided 9 mm kidney stone with mild hydronephrosis. Discussed these findings direct with the patient. He reports that while he does have a history of multiple TURPs he does not currently follow with urologist. Will discharge with medication for pain control and return precautions as well as contact information for local area urologist for follow-up. Clear return precautions given. Departure - Departure Disposition: 01 Home, Self Care Clinical Impression: Kidney stone Instructions: ED Stone Renal W Colic Follow-Up: WILL JUAREZ MD [Physician No Access] - Michael Coronado MD [Physician No Access] - Prescriptions: HYDROcod/ACETAM 5/325 [[place] 5/325] 1 tab PO Q6HR PRN #10 tablet PRN Reason: Pain 1-4 Ondansetron Odt [Zofran] 4 mg TL Q6H PRN #10 tablet PRN Reason: Nausea / Vomiting Comments: Thank you for allowing us to care for you today at [facility]. I like to thank you personally for your patience with us this evening. You were diagnosed tonight with a 9 mm right-sided kidney stone. The remainder of your tests including your urine studies and renal function studies were pristine however stones of this size often require urologic intervention to help with the removal. I would like you to contact your primary care team tomorrow in order to inquire about referral to a local [facility] urologist. I have also included contact information for a urologist out of the [facility] as well as a urologist out of [facility]. Please follow-up with these resources as needed. I have sent a prescription for a stronger pain medication as well as medication for any nausea you may experience to your preferred pharmacy, [facility]. Please drink plenty of fluids. If it anytime you develop new or worsening symptoms such as worsening pain, fever, intractable nausea, vomiting or if you have episodes in which you feel the need to urinate and cannot please return to the emergency department immediately. Discharge Date/Time: 11/26/22 17:43
[2022-11-26 16:02] VITALS: BP 132/70
[2022-11-26] MEDS ORDERED: iohexoL-300 100 ML VIAL IVP ONE (16:48)
--- NOTE | 2022-11-26 17:13 | CT Report ---
PROCEDURE: ABDOMEN/PELVIS W INDICATIONS: flank pain hematuria CONTRAST: 100ml Omnipaque 300 TECHNIQUE: After the administration of intravenous contrast, 5 mm thick sections acquired from the diaphragms to the symphysis. 5 mm thick coronal and sagittal reformats were acquired. For radiation dose reducti on, the following was used: automated exposure control, adjustment of mA and/or kV according to maria elena ent size. COMPARISON: CT abdomen pelvis 09/11/2015. FINDINGS: Image quality: Excellent. Lung bases and heart: Bibasilar atelectasis. No pleural effusion. Coronary artery calcifications. Liver: No solid mass. Probable hepatic steatosis. Gallbladder and biliary tree: No radiopaque stones or wall thickening. No biliary dilation. Spleen: No splenomegaly. Pancreas: No pancreatic ductal dilation. Adrenals: No adrenal nodule. Kidneys and ureters: No hydronephrosis demonstrated. There is a stone at the right UPJ measuring 0.9 cm, (10/18), not seen in 2016. No solid mass. Low-density cyst at the superior pole of the right kidne y measuring 1.4 cm. Bowel and peritoneum: No bowel distension. No pathologic free fluid. Diverticulosis without evidence of diverticulitis. Normal appendix. Lymph nodes: No central or retroperitoneal adenopathy. Vessels: No infrarenal aortic aneurysm. Right IKER is ectatic. Moderate to severe calcified atheroscle rotic plaque. Jennifer mesentery in the left abdomen, unchanged. PELVIS Reproductive organs: Unremarkable. Bladder: No stone. Pelvic lymph nodes: No pelvic adenopathy by size criteria. Bones: No aggressive osseous abnormality. DDD most pronounced at L5-S1. Other: No significant ventral or inguinal hernia. IMPRESSION: No kidney stone at the right UPJ measuring 0.9 cm. No significant hydronephrosis at this time. No acute inflammatory process seen. No free fluid. Reviewed by: Rangel Shaw MD on 11/26/2022 5:12 PM PDT Approved by: Rangel Shaw MD on 11/26/2022 5:12 PM PDT Station ID: [id number]
[2022-11-26] MEDS ORDERED: HYDROcod/ACETAM 5/325 MG TABLET PO STA (17:26)
[2022-11-26] MEDS ORDERED: oxyCODONE/ACET 5/325 Prepack 4 PO STA (17:27)
[2022-11-26] MEDS ORDERED: NAPROXEN 250 MG TABLET PO STA (17:27)
[2022-11-26] MEDS ORDERED: ONDANSETRON ODT 4 MG Prepack 2 TL PRN (17:27)
== END 2022-11-26 17:43 | disposition home or self-care (01) ==
LOC: ED 11:24
DX: N13.2 Hydronephrosis with renal and ureteral calculous obstruction (principal); Z87.442 Personal history of urinary calculi
CPT/HCPCS: 36415; 74177; 80053; 81001; 83690; 85025; 85610; 99284; A9270; Q9967; 81003; 87086

== ENCOUNTER 2023-02-19 08:26 | Outpatient (CLI) | payer MEDICARE, OTHER ==
[2023-02-19 14:57] LABS: BASOPHILS # (AUTO) 0.1 10^3/uL (0.0-0.1); BASOPHILS % (AUTO) 1.3 %; EOSINOPHILS # (AUTO) 0.2 10^3/uL (0.0-0.7); EOSINOPHILS % (AUTO) 4.9 %; HCT - HEMATOCRIT 41.3 % (42.0-52.0); HGB - HEMOGLOBIN 13.2 g/dL (14.0-18.0); LYMPHOCYTES # (AUTO) 1.5 10^3/uL (1.5-3.5); LYMPHOCYTES % (AUTO) 33.2 %; MEAN CORPUSCULAR HEMOGLOBIN 31.1 pg (27.0-31.0); MEAN CORPUSCULAR VOLUME 97.4 fL (80.0-94.0); MEAN PLATELET VOLUME 10.8 fL (7.4-11.4); MONOCYTES # (AUTO) 0.5 10^3/uL (0.0-1.0); MONOCYTES % (AUTO) 11.7 %; NEUTROPHILS # (AUTO) 2.2 10^3/uL (1.5-6.6); NEUTROPHILS % (AUTO) 48.7 %; PLT - PLATELET COUNT 197 10^3/uL (130-450); RED BLOOD COUNT 4.24 10^6/uL (4.70-6.10); RED CELL DISTRIBUTION WIDTH 14.1 % (12.0-15.0); WHITE BLOOD COUNT 4.5 x10^3/uL (4.8-10.8)
[2023-02-19 15:34] LABS: ALBUMIN 4.3 g/dL (3.2-5.5); ALBUMIN/GLOBULIN RATIO 1.2 (1.0-2.2); ALKALINE PHOSPHATASE 109 IU/L (42-121); ALT ALANINE AMINOTRANSFERASE 18 IU/L (10-60); AST ASPARTATE AMINOTRANSFERASE 14 IU/L (10-42); BILIRUBIN,TOTAL 0.6 mg/dL (0.2-1.0); BUN - BLOOD UREA NITROGEN 18 mg/dL (6-20); CALCIUM 9.7 mg/dL (8.5-10.3); CARBON DIOXIDE - CO2 31 mmol/L (21-32); CHLORIDE 104 mmol/L (101-111); CHOL/HDL RATIO 2.5 (<5.0); CHOLESTEROL 121 mg/dL; CREATININE 0.9 mg/dL (0.6-1.3); GFR - MDRD 82 (>89); GLUCOSE 94 mg/dL (74-104); HDL CHOLESTEROL 49 mg/dL; LDL CHOLESTEROL,CALCULATED 60 mg/dL; LDL/HDL RATIO 1.2 (<3.6); SODIUM 140 mmol/L (135-145); TOTAL PROTEIN 7.8 g/dL (6.4-8.9); TRIGLYCERIDES 60 mg/dL (48-352); VLDL CHOLESTEROL 12 mg/dL
== END 2023-02-19 08:27 | disposition home or self-care (01) ==
LOC: LAB.S 08:26
PROVIDERS: ATTEND Registered Nurse
DX: Z79.899 Other long term (current) drug therapy (principal); Z13.220 Encounter for screening for lipoid disorders
CPT/HCPCS: 36415; 80053; 80061; 83721; 85025

== ENCOUNTER 2023-05-14 12:49 | Outpatient (CLI) | payer MEDICARE, OTHER ==
--- NOTE | 2023-05-14 14:36 | CT Report ---
PROCEDURE: ABDOMEN/PELVIS WO INDICATIONS: KIDNEY STONES TECHNIQUE: A CT scan of the abdomen and pelvis was performed without the use of intravenous contrast. Images we re recorded and evaluated at appropriate window settings. Reformats: coronal and sagittal. For radiat ion dose reduction, the following was used: automated exposure control, adjustment of mA and/or kV ac cording to patient size. COMPARISON: None. FINDINGS: Image quality: Excellent. Lung bases and heart: Unremarkable. Liver: No solid mass. Gallbladder and biliary tree: No radiopaque stones or wall thickening. No biliary dilation. Spleen: No splenomegaly. Pancreas: No pancreatic ductal dilation. Adrenals: No adrenal nodule. Kidneys and ureters: No hydronephrosis. No renal cystic lesion which requires follow up. No solid mas s. Punctate nonobstructing right-sided nephrolithiasis. Bowel and peritoneum: No bowel distension. No pathologic free fluid. Central mesenteric fat stranding without adenopathy; findings typically indicate a benign process in the absence of enlarged lymph no summer. Colonic Lymph nodes: No central or retroperitoneal adenopathy. Vessels: No infrarenal aortic aneurysm. PELVIS Reproductive organs: Unremarkable. Bladder: No wall thickness, accounting for underdistention. Pelvic lymph nodes: No pelvic adenopathy by size criteria. Bones: No aggressive osseous abnormality. Other: No significant ventral or inguinal hernia. IMPRESSION: No hydronephrosis or obstructing renal stone. Punctate nonobstructing right-sided nephrolithiasis. Reviewed by: Semaj Fernandez on 05/14/2023 2:35 PM PDT Approved by: Semaj Fernandez on 05/14/2023 2:35 PM PDT Station ID: [id number]
== END 2023-05-14 12:50 | disposition home or self-care (01) ==
LOC: DI 12:49
PROVIDERS: ATTEND Urology
DX: N20.0 Calculus of kidney (principal)

== ENCOUNTER 2023-11-10 11:17 | Outpatient (CLI) | payer MEDICARE, OTHER ==
--- NOTE | 2023-11-10 13:14 | XRAY Report ---
PROCEDURE: Chest 2V INDICATIONS: CHEST PAIN TECHNIQUE: 2 views of the chest were acquired. COMPARISON: None. FINDINGS: Surgical changes and devices: None. Lungs and pleura: No pleural effusions or pneumothorax. Lungs are mildly hyperexpanded and clear. Mediastinum: Mediastinal contours appear normal. Heart size is normal. Bones and chest wall: Mild degenerative changes in the included spine. Mild exaggerated thoracic kyp hosis. IMPRESSION: No acute cardiopulmonary process. Reviewed by: Damir Polanco MD on 11/10/2023 1:12 PM PDT Approved by: Damir Polanco MD on 11/10/2023 1:12 PM PDT Station ID: [id number]
--- NOTE | 2023-11-10 13:17 | XRAY Report ---
PROCEDURE: Finger(s) RT INDICATIONS: OTHER DEFORMITY OF RIGHT FINGER(S) TECHNIQUE: PA hand, 2 views of the small finger acquired. COMPARISON: None. FINDINGS: Bones: No acute fractures or dislocations. No suspicious bony lesions. Generalized osteopenia. Mu ltilevel joint space narrowing and degenerative changes at the interphalangeal joints of the fingers as well as the 1st carpometacarpal and metacarpophalangeal joints and the triscaphe joint. Soft tissues: No suspicious soft tissue calcifications. IMPRESSION: Moderate osteoarthrosis. If there is clinical concern for soft tissue mass then MRI with and without contrast could be performed for further evaluation. Reviewed by: Damir Polanco MD on 11/10/2023 1:15 PM PDT Approved by: Damir Polanco MD on 11/10/2023 1:15 PM PDT Station ID: [id number]
== END 2023-11-10 11:18 | disposition home or self-care (01) ==
LOC: DI.S 11:17
PROVIDERS: ATTEND Registered Nurse
DX: M20.091 Other deformity of right finger(s) (principal); M19.041 Primary osteoarthritis, right hand; R07.9 Chest pain, unspecified

== ENCOUNTER 2023-11-12 11:10 | Outpatient (CLI) | payer MEDICARE, OTHER ==
--- NOTE | 2023-11-12 16:53 | XRAY Report ---
PROCEDURE: Abdomen 1 V INDICATIONS: KIDNEY STONES TECHNIQUE: One view of the abdomen acquired. COMPARISON: CT abdomen and pelvis on May 14, 2023. FINDINGS: Surgical changes and devices: None. Bowel: Bowel gas pattern is normal. Soft tissues: No suspicious abdominal calcifications. Visualized solid organ contours appear normal in size. Bones: No suspicious bony lesions. Degenerative changes of the spine. IMPRESSION: 1.No acute abdominal pathology. 2.No radiographic evidence of nephrolithiasis. If there is high clinical suspicion, consider a CT KUB for further evaluation. Reviewed by: Lisset Aguillon MD on 11/12/2023 4:51 PM PDT Approved by: Lisset Aguillon MD on 11/12/2023 4:51 PM PDT Station ID: [id number]
== END 2023-11-12 11:11 | disposition home or self-care (01) ==
LOC: DI.S 11:10
PROVIDERS: ATTEND Urology
DX: N20.0 Calculus of kidney (principal)

== ENCOUNTER 2023-12-26 07:00 | Outpatient (CLI) | payer MEDICARE, OTHER | END 2023-12-26 23:59 | disposition home or self-care (01) | LOC: LAB.S 07:00 | PROVIDERS: ATTEND Physician Assistant Medical | DX: R82.998 Other abnormal findings in urine (principal) | CPT/HCPCS: 87086 ==

== ENCOUNTER 2023-12-29 16:24 | Outpatient (CLI) | payer MEDICARE, OTHER ==
--- NOTE | 2023-12-30 13:19 | CT Report ---
PROCEDURE: Abdomen/Pelvis WO INDICATIONS: RIGHT FLANK PAIN, ABDOMINAL PAIN TECHNIQUE: A CT scan of the abdomen and pelvis was performed without the use of intravenous contrast. Images we re recorded and evaluated at appropriate window settings. Reformats: coronal and sagittal. For radiat ion dose reduction, the following was used: automated exposure control, adjustment of mA and/or kV ac cording to patient size. COMPARISON: None. FINDINGS: Image quality: Diagnostic. Lower chest: Cardiomegaly. Liver: No contour-deforming mass. Gallbladder: Contracted, without stones. Biliary tree: No intrahepatic or extrahepatic dilation, accounting for age. Spleen: No splenomegaly. Pancreas: No pancreatic ductal dilation. Adrenals: No adrenal nodule. Kidneys and ureters: No hydronephrosis. No contour-deforming mass. Punctate nonobstructing right-side d nephrolithiasis. Stomach, bowel and peritoneum: No gastric or small bowel dilation. No abnormal wall thickening. No pa thologic free fluid. Normal appendix. Colonic diverticulosis without evidence of diverticulitis. Cent ral mesenteric fat stranding without adenopathy; findings typically indicate a benign process in the absence of enlarged lymph nodes. Lymph nodes: No central or retroperitoneal adenopathy. Vessels: No infrarenal aortic aneurysm. Reproductive organs: Unremarkable. Bladder: Bladder wall thickness is normal, accounting for underdistention. No calcified bladder stone s. Pelvic lymph nodes: No adenopathy by size criteria. Bones: No aggressive osseous abnormality. Degenerative changes of the spine. Other: No significant ventral or inguinal hernia. IMPRESSION: No hydronephrosis or obstructing renal stone. Punctate nonobstructing right-sided nephrolithiasis. Colonic diverticulosis without evidence of diverticulitis. Normal appendix. Reviewed by: Semaj Fernandez MD on 12/30/2023 1:18 PM PDT Approved by: Semaj Fernandez MD on 12/30/2023 1:18 PM PDT Station ID: [id number]
== END 2023-12-29 16:25 | disposition home or self-care (01) ==
LOC: DI 16:24
PROVIDERS: ATTEND Physician Assistant Medical
DX: N20.0 Calculus of kidney (principal); K57.30 Diverticulosis of large intestine without perforation or abscess without bleeding

== ENCOUNTER 2024-02-20 08:36 | Outpatient (CLI) | payer MEDICARE, OTHER ==
[2024-02-20 16:01] LABS: CHOL/HDL RATIO 2.5 (<5.0); CHOLESTEROL 113 mg/dL; HDL CHOLESTEROL 46 mg/dL; LDL CHOLESTEROL,CALCULATED 54 mg/dL; LDL/HDL RATIO 1.2 (<3.6); TRIGLYCERIDES 64 mg/dL; VLDL CHOLESTEROL 13 mg/dL
== END 2024-02-20 08:37 | disposition home or self-care (01) ==
LOC: LAB.S 08:36
PROVIDERS: ATTEND Registered Nurse
DX: Z13.228 Encounter for screening for other metabolic disorders (principal); Z13.220 Encounter for screening for lipoid disorders; Z13.0 Encounter for screening for diseases of the blood and blood-forming organs and certain disorders involving the immune mechanism
CPT/HCPCS: 36415; 80053; 80061; 83721; 85025

== ENCOUNTER 2024-03-10 21:01 | Outpatient (CLI) | payer MEDICARE, OTHER ==
--- NOTE | 2024-03-11 14:31 | Ultrasound Report ---
PROCEDURE: Pelvic Limited INDICATIONS: RIGHT GROIN PAIN TECHNIQUE: Real-time transabdominal scanning was performed of the inguinal region, with image documentation. COMPARISON: None. FINDINGS: Targeted ultrasound of the right inguinal region demonstrates a nonreducible, fat-containing inguinal hernia. The neck measures 0.7 cm and the sac measures 2.6 x 0.7 x 1.4 cm. IMPRESSION: Nonreducible, fat-containing right inguinal hernia. Reviewed by: Semaj Fernandez MD on 03/11/2024 2:30 PM PDT Approved by: Semaj Fernandez MD on 03/11/2024 2:30 PM PDT Station ID: [id number]
== END 2024-03-10 21:02 | disposition home or self-care (01) ==
LOC: DI 21:01
PROVIDERS: ATTEND Physician Assistant
DX: R10.31 Right lower quadrant pain (principal); K40.90 Unilateral inguinal hernia, without obstruction or gangrene, not specified as recurrent

== ENCOUNTER 2024-03-23 09:43 | Outpatient (CLI) | payer MEDICARE, OTHER | END 2024-03-23 09:44 | disposition home or self-care (01) | LOC: RT 09:43 | PROVIDERS: ATTEND Surgery | DX: Z01.810 Encounter for preprocedural cardiovascular examination (principal); I49.9 Cardiac arrhythmia, unspecified; R10.31 Right lower quadrant pain | CPT/HCPCS: 93005 ==